=== PATIENT | male | born 1945 | race Caucasian/White ===

== ENCOUNTER 2017-06-17 12:04 | Outpatient (CLI) | payer MEDICARE, BC ==
[2017-06-17 13:26] LABS: Anion Gap 14 mmol/L (10-20); Carbon Dioxide 28 mmol/L (23-31); Chloride 109 mmol/L (98-107); Potassium 3.8 mmol/L (3.5-5.1); Sodium 147 mmol/L (136-145)
== END 2017-06-17 12:05 | disposition home or self-care (01) ==
LOC: MADLAB 12:04
DX: I10 Essential (primary) hypertension (principal); Z86.010 Personal history of colon polyps
CPT/HCPCS: 36415; 80051

== ENCOUNTER 2018-03-05 12:07 | Outpatient (CLI) | payer MEDICARE, BC ==
--- NOTE | 2018-03-05 13:24 | RAD ---
CERVICAL SPINE THREE VIEWS: History: Neck pain. FINDINGS: Vertebral body heights are maintained. Straightening of the normal lordotic curvature. Disc space aftab rowing and osteophytosis are most pronounced at the C5-6 and C6-7 levels. No acute fracture or disloc ation. IMPRESSION: Prominent degenerative changes lower cervical spine. POS: [facility]
== END 2018-03-05 12:08 | disposition home or self-care (01) ==
LOC: MADRAD 12:07
PROVIDERS: ATTEND Internal Medicine
DX: M54.2 Cervicalgia (principal); M47.812 Spondylosis without myelopathy or radiculopathy, cervical region
CPT/HCPCS: 72040

== ENCOUNTER 2018-04-18 20:30 | Emergency (ER) | payer MEDICARE, BC ==
[2018-04-18] MEDS ORDERED: Clindamycin 150 MG CAP ONE (21:36)
== END 2018-04-18 21:43 | disposition home or self-care (01) ==
LOC: MADERS 20:30
DX: L03.116 Cellulitis of left lower limb (principal); I10 Essential (primary) hypertension; E11.9 Type 2 diabetes mellitus without complications; Z79.82 Long term (current) use of aspirin; Z79.84 Long term (current) use of oral hypoglycemic drugs; Z79.1 Long term (current) use of non-steroidal anti-inflammatories (NSAID)
CPT/HCPCS: 99283

== ENCOUNTER 2020-09-02 14:55 | Emergency (ER) | payer OTHER, MEDICARE, BC ==
[~2020-09-02 14:55] MED LIST: Iopamidol 370 76% 100 ML VIAL ONE
[2020-09-02 15:54] LABS: #Basophils 0.1 thou/uL (0.0-0.2); #Eosinphils 0.6 thou/uL (0.0-0.7); #Monocytes 0.6 thou/uL (0.11-0.59); #Neutrophils 2.9 thou/uL (1.40-6.50); %Basophils 0.9 % (0.0-1.0); %Eosinophils 9.5 % (0.0-10.0); %Lymphocytes 32.3 % (21.0-51.0); %Monocytes 9.9 % (0.0-10.0); %Neutrophils 47.4 % (42.0-75.0); Hemoglobin 11.2 g/dL (14.0-18.0); Mean Corpuscular HGB CONC 33.3 g/dL (32.0-36.0); Mean Corpuscular Hemoglobin 29.7 pg (27.0-31.0); Mean Corpuscular Volume 89.2 fL (78.0-98.0); Mean Platelet Volume 8.1 fL (7.4-10.4); Platelet Count 141 thou/uL (130-400); RBC Distribution Width 12.6 % (11.5-14.5); Red Blood Cell (RBC) Count 3.78 mill/uL (4.70-6.10); White Blood Cell (WBC) Count 6.1 thou/uL (4.8-10.8)
[2020-09-02 16:00] LABS: PTT 29.6 sec (22.9-36.1); Prothrombin Time 13.4 sec (12.0-14.7)
[2020-09-02 16:11] LABS: ALT (SGPT) 27 U/L (8-55); AST (SGOT) 27 U/L (5-34); Albumin 3.8 g/dL (3.4-4.8); Alkaline Phosphatase 56 U/L (40-110); Anion Gap 15 mmol/L (10-20); BUN (Urea Nitrogen) 20 mg/dL (8.4-25.7); Bilirubin, Total 0.4 mg/dL (0.2-1.2); CK (CPK) 176 U/L (30-200); Calc. Creatinine Clearance 0 mL/min (70-130); Calcium 9.3 mg/dL (7.8-10.44); Carbon Dioxide 23 mmol/L (23-31); Chloride 104 mmol/L (98-107); Globulin 2.1 g/dL (2.4-3.5); Glucose 100 mg/dL (83-110); Lipase 35 U/L (8-78); Potassium 4.4 mmol/L (3.5-5.1); Protein, Total 5.9 g/dL (5.8-8.1); Sodium 138 mmol/L (136-145)
[2020-09-02 17:01] LABS: Bilirubin Negative (Negative); Blood, Urine Negative (Negative); Clarity Clear (Clear); Glucose, Urine (Dipstick) Negative (Negative); Ketone, Urine Negative (Negative); Leukocyte Negative (Negative); Nitrite Negative (Negative); Protein, Urine (Dipstick) 100 mg/dL (Neg-Trace); Specific Gravity, Urine 1.015 (1.005-1.030); Urobilinogen 0.2 mg/dL (Less than 2)
[2020-09-02 17:07] LABS: Bacteria/HPF Rare-Few HPF (None Seen); RBC/HPF 0-3 HPF (0-3); Squamous Epithelial 0-3 HPF (0-3); WBC/HPF 0-3 HPF (0-3)
== END 2020-09-02 18:36 | disposition short-term general hospital (02) ==
LOC: MADERS 14:55
DX: R55 Syncope and collapse (principal); S60.212A Contusion of left wrist, initial encounter; S60.211A Contusion of right wrist, initial encounter; M51.26 Other intervertebral disc displacement, lumbar region; E11.9 Type 2 diabetes mellitus without complications; I10 Essential (primary) hypertension; Z86.73 Personal history of transient ischemic attack (TIA), and cerebral infarction without residual deficits; Z79.82 Long term (current) use of aspirin; Z79.84 Long term (current) use of oral hypoglycemic drugs; Z79.899 Other long term (current) drug therapy; V49.9XXA Car occupant (driver) (passenger) injured in unspecified traffic accident, initial encounter
CPT/HCPCS: 36415; 70450; 71260; 72125; 74177; 80053; 81003; 81015; 82550; 83690; 84484; 85025; 85610; 85730; 86850; 86900; 86901; 93005; 94760; Q9967

== ENCOUNTER 2021-04-24 09:42 | Emergency (ER) | payer MEDICARE, BC ==
[~2021-04-24 09:42] MED LIST changes: -Iopamidol 370 76% 100 ML VIAL ONE; +Iopamidol 370 76% 125 ML VIAL FS ONE
[2021-04-24 11:14] LABS: #Basophils 0.1 thou/uL (0.0-0.2); #Eosinphils 0.3 thou/uL (0.0-0.7); #Lymphocytes 1.6 thou/uL (1.20-3.40); #Monocytes 0.6 thou/uL (0.11-0.59); #Neutrophils 3.2 thou/uL (1.40-6.50); %Basophils 1.1 % (0.0-1.0); %Eosinophils 5.5 % (0.0-10.0); %Lymphocytes 26.9 % (21.0-51.0); %Monocytes 10.4 % (0.0-10.0); %Neutrophils 56.1 % (42.0-75.0); Hemoglobin 11.5 g/dL (14.0-18.0); Mean Corpuscular HGB CONC 33.5 g/dL (32.0-36.0); Mean Corpuscular Hemoglobin 28.3 pg (27.0-31.0); Mean Corpuscular Volume 84.5 fL (78.0-98.0); Mean Platelet Volume 6.2 fL (7.4-10.4); Platelet Count 296 thou/uL (130-400); RBC Distribution Width 12.6 % (11.5-14.5); Red Blood Cell (RBC) Count 4.07 mill/uL (4.70-6.10); White Blood Cell (WBC) Count 5.7 thou/uL (4.8-10.8)
[2021-04-24] MEDS ORDERED: Sodium Chloride 0.9% 250 ML 250 ML ONE (11:19)
[2021-04-24] MEDS ORDERED: Azithromycin 500 MG VIAL ONE (11:19)
[2021-04-24 11:28] LABS: ALT (SGPT) 22 U/L (8-55); AST (SGOT) 23 U/L (5-34); Albumin 4.1 g/dL (3.4-4.8); Alkaline Phosphatase 67 U/L (40-110); Anion Gap 14 mmol/L (10-20); BUN (Urea Nitrogen) 27 mg/dL (8.4-25.7); Bilirubin, Total 0.3 mg/dL (0.2-1.2); Calc. Creatinine Clearance 0 mL/min (70-130); Calcium 9.4 mg/dL (7.8-10.44); Carbon Dioxide 26 mmol/L (23-31); Chloride 100 mmol/L (98-107); Globulin 2.6 g/dL (2.4-3.5); Glucose 69 mg/dL (83-110); Potassium 4.1 mmol/L (3.5-5.1); Protein, Total 6.7 g/dL (5.8-8.1); Sodium 136 mmol/L (136-145)
[2021-04-24] MEDS ORDERED: Sodium Chloride 0.9% 100 ML BAG ONE (13:00)
[2021-04-24] MEDS ORDERED: Lactated Ringer's 1,000 ML ONE (13:03)
[2021-04-24] MEDS ORDERED: Amoxicillin/Potassium Clav 250 mg/5 ml Oral Suspension ONE (13:03)
[2021-04-24] MEDS ORDERED: Amoxicillin/Potassium Clav 875 MG TAB ONE (13:04)
== END 2021-04-24 13:33 | disposition home or self-care (01) ==
LOC: MADERS 09:42
DX: J18.9 Pneumonia, unspecified organism (principal); J91.8 Pleural effusion in other conditions classified elsewhere; N17.9 Acute kidney failure, unspecified; K80.20 Calculus of gallbladder without cholecystitis without obstruction; N28.1 Cyst of kidney, acquired; E11.649 Type 2 diabetes mellitus with hypoglycemia without coma; I10 Essential (primary) hypertension; C94.80 Other specified leukemias not having achieved remission; Z86.73 Personal history of transient ischemic attack (TIA), and cerebral infarction without residual deficits; Z87.19 Personal history of other diseases of the digestive system; Z85.850 Personal history of malignant neoplasm of thyroid
CPT/HCPCS: 36415; 36416; 71045; 71275; 80053; 83605; 83880; 84484; 85025; 85379; 93005; 94760; 96365; J0456; J3490; J7050; J7120; Q9967

== ENCOUNTER 2021-09-14 20:27 | Emergency (ER) | payer MEDICARE, BC ==
[~2021-09-14 20:27] MED LIST changes: -Iopamidol 370 76% 125 ML VIAL FS ONE; +Sodium Chloride 0.9% 100 ML BAG ONE
[2021-09-14 21:12] LABS: #Eosinphils 0.4 thou/uL (0.0-0.7); #Lymphocytes 1.6 thou/uL (1.20-3.40); #Monocytes 0.6 thou/uL (0.11-0.59); #Neutrophils 1.3 thou/uL (1.40-6.50); %Eosinophils 11.2 % (0.0-10.0); %Lymphocytes 41.5 % (21.0-51.0); %Monocytes 14.5 % (0.0-10.0); %Neutrophils 31.8 % (42.0-75.0); Hemoglobin 10.9 g/dL (14.0-18.0); Mean Corpuscular HGB CONC 32.9 g/dL (32.0-36.0); Mean Corpuscular Hemoglobin 27.6 pg (27.0-31.0); Mean Corpuscular Volume 83.7 fL (78.0-98.0); Mean Platelet Volume 7.6 fL (7.4-10.4); Platelet Count 174 thou/uL (130-400); RBC Distribution Width 12.7 % (11.5-14.5); Red Blood Cell (RBC) Count 3.97 mill/uL (4.70-6.10); White Blood Cell (WBC) Count 3.9 thou/uL (4.8-10.8)
[2021-09-14 21:36] LABS: ALT (SGPT) 25 U/L (8-55); AST (SGOT) 24 U/L (5-34); Albumin 3.8 g/dL (3.4-4.8); Alkaline Phosphatase 63 U/L (40-110); Anion Gap 15 mmol/L (10-20); BUN (Urea Nitrogen) 27 mg/dL (8.4-25.7); Bilirubin, Total 0.3 mg/dL (0.2-1.2); Calc. Creatinine Clearance 0 mL/min (70-130); Calcium 9.7 mg/dL (7.8-10.44); Carbon Dioxide 25 mmol/L (23-31); Chloride 102 mmol/L (98-107); Globulin 2.5 g/dL (2.4-3.5); Glucose 100 mg/dL (83-110); Lipase 48 U/L (8-78); Potassium 4.8 mmol/L (3.5-5.1); Protein, Total 6.3 g/dL (5.8-8.1); Sodium 137 mmol/L (136-145)
[2021-09-14] MEDS ORDERED: cefTRIAXone\\ROCEPHIN 1 GM VIAL ONE (22:47)
[2021-09-14] MEDS ORDERED: Azithromycin 250 MG TAB ONE (22:47)
[2021-09-14 23:09] LABS: SARS-CoV-2 NAA Rapid Test Not Detected (NotDetected)
== END 2021-09-14 23:32 | disposition home or self-care (01) ==
LOC: MADERS 20:27
DX: J90 Pleural effusion, not elsewhere classified (principal); Z20.822 Contact with and (suspected) exposure to COVID-19; E11.9 Type 2 diabetes mellitus without complications; I10 Essential (primary) hypertension; Z79.899 Other long term (current) drug therapy
CPT/HCPCS: 71045; 80053; 83690; 83880; 84484; 85025; 93005; 96365; J0696; J3490

== ENCOUNTER 2023-08-10 10:55 | Emergency (ER) | payer MEDICARE ==
[2023-08-10 11:27] LABS: PTT 30.3 sec (22.9-36.1); Prothrombin Time 13.3 sec (12.0-14.7)
[2023-08-10 11:33] LABS: Anion Gap 15 mmol/L (10-20); BUN (Urea Nitrogen) 24 mg/dL (8.4-25.7); Calc. Creatinine Clearance 0 mL/min (70-130); Calcium 9.5 mg/dL (7.8-10.44); Carbon Dioxide 26 mmol/L (23-31); Chloride 105 mmol/L (98-107); Estimated GFR 32; Glucose 138 mg/dL (83-110); Potassium 3.6 mmol/L (3.5-5.1); Sodium 142 mmol/L (136-145)
[2023-08-10 11:39] LABS: Hematocrit 33.6 % (42.0-52.0); Hemoglobin 10.6 g/dL (14.0-18.0); Mean Corpuscular HGB CONC 31.6 g/dL (32.0-36.0); Mean Corpuscular Hemoglobin 28.7 pg (27.0-31.0); Mean Corpuscular Volume 90.7 fl (78.0-98.0); Mean Platelet Volume 7.4 fL (7.4-10.4); Platelet Count 152 10x3/uL (130-400); RBC Distribution Width 14.6 % (11.5-14.5); Red Blood Cell (RBC) Count 3.71 mill/uL (4.70-6.10); White Blood Cell (WBC) Count 5.5 10x3/uL (4.8-10.8)
[2023-08-10 11:40] LABS: Band 1 % (5-11); Eosinophils 14 % (0-10); Hypochromia SLIGHT = 6-15 cells (100X) (0-5/hpf); Lymphocytes 3 % (21-51); MDiff Complete? YES; Manual Diff?? YES; Monocytes 6 % (0-10); Neutrophil 69 % (42-75); Platelet Adequacy Comment Appears Adequate; Reactive Lymphocytes 7 % (0-10)
[2023-08-10] MEDS ORDERED: cefTRIAXone (ROCEPHIN) 500 MG VIAL ONE (12:07)
[2023-08-10] MEDS ORDERED: Vancomycin HCl 500 MG VIAL ONE (12:07)
== END 2023-08-10 13:16 | disposition home or self-care (01) ==
LOC: MADERS 10:55
DX: T81.49XA Infection following a procedure, other surgical site, initial encounter (principal); H10.13 Acute atopic conjunctivitis, bilateral; E11.9 Type 2 diabetes mellitus without complications; I10 Essential (primary) hypertension
CPT/HCPCS: 70486; 80048; 83605; 85025; 85610; 85730; 86140; 87040; 87081; 87430; 96374; 96375; J0696; J3370

== ENCOUNTER 2023-11-02 12:59 | Emergency (ER) | payer MEDICARE ==
[2023-11-02 13:48] LABS: SARS-CoV-2 E Target Positive; SARS-CoV-2 N2 Target Positive; SARS-CoV-2 NAA Rapid Test DETECTED (NotDetected); SARS-CoV-2 RdRP gene Positive
== END 2023-11-02 14:17 | disposition home or self-care (01) ==
LOC: MADERS 12:59
DX: U07.1 COVID-19 (principal); I12.9 Hypertensive chronic kidney disease with stage 1 through stage 4 chronic kidney disease, or unspecified chronic kidney disease; N18.9 Chronic kidney disease, unspecified; E11.22 Type 2 diabetes mellitus with diabetic chronic kidney disease; Z79.899 Other long term (current) drug therapy
CPT/HCPCS: 71046; U0002

== ENCOUNTER 2024-01-22 12:32 | Emergency (ER) | payer MEDICARE ==
[2024-01-22] MEDS ORDERED: Bacitracin 1 PK ONE (13:11)
[2024-01-22] MEDS ORDERED: Boostrix 0.5 ML (Tdap) VIAL (>/=7 yrs of age) ONE (13:11)
== END 2024-01-22 13:32 | disposition home or self-care (01) ==
LOC: MADERS 12:32
DX: S51.811A Laceration without foreign body of right forearm, initial encounter (principal); I12.9 Hypertensive chronic kidney disease with stage 1 through stage 4 chronic kidney disease, or unspecified chronic kidney disease; N18.9 Chronic kidney disease, unspecified; E11.22 Type 2 diabetes mellitus with diabetic chronic kidney disease; E78.5 Hyperlipidemia, unspecified; X50.9XXA Other and unspecified overexertion or strenuous movements or postures, initial encounter; Z23 Encounter for immunization; Z79.899 Other long term (current) drug therapy
CPT/HCPCS: 90471; 90715

== ENCOUNTER 2024-07-16 18:25 | Emergency (ER) | payer MEDICARE ==
[2024-07-16] MEDS ORDERED: Morphine 4 MG/ML VIAL ONE (19:23)
[2024-07-16 19:41] LABS: #Basophils 0.1 thou/uL (0.0-0.2); #Eosinophils 0.2 thou/uL (0.0-0.7); #Lymphocytes 1.1 thou/uL (1.20-3.40); #Monocytes 0.7 thou/uL (0.11-0.59); #Neutrophils 7.3 thou/uL (1.40-6.50); %Basophils 0.6 % (0.0-1.0); %Eosinophils 2.4 % (0.0-10.0); %Lymphocytes 11.8 % (21.0-51.0); %Monocytes 7.3 % (0.0-10.0); Hematocrit 38.4 % (42.0-52.0); Hemoglobin 11.9 g/dL (14.0-18.0); Mean Corpuscular Hemoglobin 28.3 pg (27.0-31.0); Mean Corpuscular Volume 91.2 fl (78.0-98.0); Mean Platelet Volume 8.5 fL (7.4-10.4); Platelet Count 164 10x3/uL (130-400); RBC Distribution Width 13.7 % (11.5-14.5); Red Blood Cell (RBC) Count 4.21 mill/uL (4.70-6.10); White Blood Cell (WBC) Count 9.3 10x3/uL (4.8-10.8)
[2024-07-16 19:51] LABS: PTT 27.9 sec (22.9-36.1); Prothrombin Time 13.5 sec (12.0-14.7)
[2024-07-16 19:54] LABS: D-Dimer Test 0.59 mcg/mL (0.27-0.43)
[2024-07-16 19:55] LABS: ALT (SGPT) 17 U/L (Less than 45); AST (SGOT) 12 U/L (11-34); Albumin 3.8 g/dL (3.1-4.5); Alkaline Phosphatase 59 U/L (40-110); Anion Gap 18 mmol/L (10-20); BUN (Urea Nitrogen) 25 mg/dL (8.4-25.7); Bilirubin, Total 0.6 mg/dL (0.3-1.2); Calc. Creatinine Clearance 0 mL/min (70-130); Calcium 8.9 mg/dL (7.8-10.44); Carbon Dioxide 23 mmol/L (23-31); Chloride 103 mmol/L (98-107); Estimated GFR 35; Globulin 2.7 g/dL (2.4-3.5); Glucose 110 mg/dL (83-110); Potassium 3.5 mmol/L (3.5-5.1); Protein, Total 6.5 g/dL (5.8-8.1); Sodium 140 mmol/L (136-145)
== END 2024-07-16 20:31 | disposition short-term general hospital (02) ==
LOC: MADERS 18:25
DX: M25.462 Effusion, left knee (principal); Z86.73 Personal history of transient ischemic attack (TIA), and cerebral infarction without residual deficits; E11.22 Type 2 diabetes mellitus with diabetic chronic kidney disease; N18.9 Chronic kidney disease, unspecified; I12.9 Hypertensive chronic kidney disease with stage 1 through stage 4 chronic kidney disease, or unspecified chronic kidney disease; E78.5 Hyperlipidemia, unspecified; Z79.82 Long term (current) use of aspirin; Z79.899 Other long term (current) drug therapy
CPT/HCPCS: 73564; 80053; 83605; 85025; 85379; 85610; 85730; 86140; 87040; 94760; 96374; 99284; J2270

== ENCOUNTER 2024-10-24 15:20 | Inpatient (IN) | payer MEDICARE ==
[2024-10-24 19:26] VITALS: BMI 31.4
[2024-10-24] MEDS: Rosuvastatin 10 MG TAB PO SCH (20:47)
[2024-10-24] MEDS: DULoxetine 30 MG CAP PO SCH (20:47)
[2024-10-24] MEDS: Gabapentin 300 MG CAP PO SCH (20:47)
[2024-10-24] MEDS: Ferrous Sulfate 325 MG TAB PO SCH (20:49)
[2024-10-24] MEDS: clonazePAM 0.5 MG TAB PO SCH (20:49)
[2024-10-24] MEDS: HYDROcodone/Acetaminophen 10/325 mg Tablet PO PRN (21:02)
[2024-10-24] MEDS: Cyclobenzaprine 10 MG TAB PO PRN (21:02)
[2024-10-24] MEDS: BOSUTINIB 100 MG PO SCH (21:02)
[2024-10-24] MEDS: ALISKIREN HEMIFUMARATE 300 MG PO SCH (21:03)
[2024-10-24] MEDS: Brimonidine Tartrate 0.2% Ophth Soln 5 ml Bottle EA EYE SCH (21:03)
[2024-10-25 04:52] LABS: #Basophils 0.1 thou/uL (0.0-0.2); #Eosinophils 0.5 thou/uL (0.0-0.7); #Lymphocytes 0.8 thou/uL (1.20-3.40); #Monocytes 0.6 thou/uL (0.11-0.59); #Neutrophils 4.2 thou/uL (1.40-6.50); %Basophils 1.4 % (0.0-1.0); %Eosinophils 8.1 % (0.0-10.0); %Lymphocytes 13.0 % (21.0-51.0); %Monocytes 10.2 % (0.0-10.0); %Neutrophils 67.4 % (42.0-75.0); Hematocrit 31.2 % (42.0-52.0); Hemoglobin 10.3 g/dL (14.0-18.0); Mean Corpuscular Hemoglobin 27.3 pg (27.0-31.0); Mean Corpuscular Volume 82.5 fl (78.0-98.0); Platelet Count 257 10x3/uL (130-400); Red Blood Cell (RBC) Count 3.78 mill/uL (4.70-6.10); White Blood Cell (WBC) Count 6.2 10x3/uL (4.8-10.8)
[2024-10-25 05:07] LABS: ALT (SGPT) 22 U/L (Less than 45); AST (SGOT) 30 U/L (11-34); Albumin 3.3 g/dL (3.1-4.5); Alkaline Phosphatase 64 U/L (40-110); Anion Gap 15 mmol/L (10-20); BUN (Urea Nitrogen) 23 mg/dL (8.4-25.7); Bilirubin, Total 0.6 mg/dL (0.3-1.2); Calc. Creatinine Clearance 63 mL/min (70-130); Calcium 8.5 mg/dL (7.8-10.44); Carbon Dioxide 28 mmol/L (23-31); Chloride 103 mmol/L (98-107); Globulin 3.1 g/dL (2.4-3.5); Glucose 123 mg/dL (83-110); Potassium 3.4 mmol/L (3.5-5.1); Sodium 143 mmol/L (136-145)
[2024-10-25] MEDS: Calcitriol 0.25 MCG CAP PO SCH (08:16)
[2024-10-25] MEDS: Pantoprazole 40 MG DR.TAB PO SCH (08:16)
[2024-10-25] MEDS: Allopurinol 100 MG TAB PO SCH (08:16)
[2024-10-25] MEDS: Torsemide 20 MG TAB PO SCH (08:16)
[2024-10-25] MEDS: HYDROcodone/Acetaminophen 10/325 mg Tablet PO PRN (08:21)
[2024-10-25] MEDS: ALPRAZolam 0.5 MG TAB PO PRN (09:45)
[2024-10-26 12:21] VITALS: BMI 31.4
[2024-10-26] MEDS: Acetaminophen 325 MG TAB PO SCH (17:18)
[2024-10-28] MEDS: Torsemide 20 MG TAB PO SCH (08:48)
[2024-10-29 08:04] LABS: Anion Gap 14 mmol/L (10-20); BUN (Urea Nitrogen) 23 mg/dL (8.4-25.7); Calc. Creatinine Clearance 75 mL/min (70-130); Calcium 9.0 mg/dL (7.8-10.44); Carbon Dioxide 28 mmol/L (23-31); Chloride 103 mmol/L (98-107); Glucose 107 mg/dL (83-110); Potassium 4.0 mmol/L (3.5-5.1); Sodium 141 mmol/L (136-145)
[2024-11-01 07:54] VITALS: BP 118/59; TEMP 99.5
== END 2024-11-01 10:15 | disposition home or self-care (01) | DRG 945 ==
LOC: MADMS 18:47
PROVIDERS: ADMIT Family Medicine; ATTEND Family Medicine
PROC: F07Z9ZZ Gait Training/Functional Ambulation Treatment (ICD-10-PCS; principal; 2024-10-24)
DX: R53.81 Other malaise (principal); C92.10 Chronic myeloid leukemia, BCR/ABL-positive, not having achieved remission; D62 Acute posthemorrhagic anemia; Z96.652 Presence of left artificial knee joint; E03.9 Hypothyroidism, unspecified; N40.0 Benign prostatic hyperplasia without lower urinary tract symptoms; N18.31 Chronic kidney disease, stage 3a; G47.33 Obstructive sleep apnea (adult) (pediatric); I95.1 Orthostatic hypotension; E87.6 Hypokalemia; R26.9 Unspecified abnormalities of gait and mobility; E78.5 Hyperlipidemia, unspecified; I10 Essential (primary) hypertension; Z88.2 Allergy status to sulfonamides; Z88.8 Allergy status to other drugs, medicaments and biological substances; Z79.899 Other long term (current) drug therapy
CPT/HCPCS: 36415; 36416; 80048; 80053; 85025